=== PATIENT | male | born 1990 | race Caucasian/White ===

== ENCOUNTER 2018-08-19 11:15 | Emergency (ER) | payer MEDICAID, BC ==
[~2018-08-19] VITALS: Ht 188 cm; Wt 96.2 kg
[2018-08-19 11:18] VITALS: BP 148/97
[2018-08-19] MEDS ORDERED: HYDROcodone/APAP 5/325 TABLET ONE (11:37)
[2018-08-19] MEDS ORDERED: HYDROcodone/APAP 5/325 TABLET PO ONE (12:00)
--- NOTE | 2018-08-19 12:05 | NUR ---
Dieter osuna in ED - 08/19/18 at 1208 by ELBA Patient/Caregiver given discharge instructions and they have confirmed that they understand the instructions. Patient educated regarding crutch use, patient ambulatory with steady gait with crutches.
--- NOTE | 2018-08-19 12:05 | NUR ---
Patient/Caregiver given discharge instructions and they have confirmed that they understand the instructions. Patient ambulatory with steady gait.
== END 2018-08-19 12:07 | disposition home or self-care (01) ==
LOC: ED 12:01
DX: K04.7 Periapical abscess without sinus (principal); K02.9 Dental caries, unspecified
CPT/HCPCS: 99283

== ENCOUNTER 2019-01-15 07:14 | Emergency (ER) | payer BC, MEDICAID ==
[~2019-01-15] VITALS: Ht 185.4 cm; Wt 94.8 kg
[2019-01-15 07:26] VITALS: BP 151/79
[2019-01-15] MEDS ORDERED: KETOROLAC 30 MG/1 ML IM ONE (08:30)
[2019-01-15] MEDS ORDERED: KETOROLAC 30 MG/1 ML ONE (08:47)
[2019-01-15] MEDS ORDERED: HYDROcodone/APAP 5/325 TABLET PO ONE (10:00)
[2019-01-15] MEDS ORDERED: HYDROcodone/APAP 5/325 TABLET ONE (10:04)
--- NOTE | 2019-01-15 10:36 | NUR ---
LATE ENTRY Patient/Caregiver given discharge instructions and they have confirmed that they understand the instructions. Patient ambulatory with steady gait.
== END 2019-01-15 10:37 | disposition home or self-care (01) ==
LOC: ED 10:16
DX: G89.11 Acute pain due to trauma (principal); M54.6 Pain in thoracic spine; M50.23 Other cervical disc displacement, cervicothoracic region; M54.9 Dorsalgia, unspecified; Z88.5 Allergy status to narcotic agent; Z88.8 Allergy status to other drugs, medicaments and biological substances
CPT/HCPCS: 72072; 72125; 96372; 99284; J1885

== ENCOUNTER 2019-01-19 09:12 | Emergency (ER) | payer BC ==
[~2019-01-19] VITALS: Ht 185.4 cm; Wt 96.3 kg
[2019-01-19] MEDS ORDERED: OXYcodone/APAP 5/325MG TABLET ONE (09:41)
[2019-01-19] MEDS ORDERED: CYCLOBENZAPRINE 10 MG TABLET ONE (09:41)
[2019-01-19] MEDS ORDERED: ONDANSETRON ODT 4 MG ONE (09:41)
--- NOTE | 2019-01-19 09:48 | NUR ---
MEDS GIVEN PER ERP ORDER FOR 9/10 NECK PAIN. REFERRAL PROCESS EXPLAINED TO PT, ALL QUESTIONS ANSWERED. CALL LIGHT WITHIN REACH.
--- NOTE | 2019-01-19 09:57 | NUR ---
PT TO MRI.
[2019-01-19] MEDS ORDERED: CYCLOBENZAPRINE 10 MG TABLET PO ONE (10:00)
[2019-01-19] MEDS ORDERED: ONDANSETRON ODT 4 MG PO ONE (10:00)
[2019-01-19] MEDS ORDERED: OXYcodone/APAP 5/325MG TABLET PO ONE (10:00)
--- NOTE | 2019-01-19 11:06 | NUR ---
PT BACK FROM MRI. PT STATES PAIN TO NECK ONLY WITH MOVEMENT FOLLOWING MEDICATION. PT PREVIOUSLY RATED PAIN AT 9/10, NOW 4/10. VS UPDATED. CALL LIGHT WITHIN REACH. AWAITING MRI READ.
--- NOTE | 2019-01-19 11:34 | NUR ---
MRI RESULTS BACK, PT FOR RECHECK.
--- NOTE | 2019-01-19 12:12 | NUR ---
PT UPDATED ON ADD ON XR ORDERED. PT STATES COMFORTABLE AT THIS TIME. CALL LIGHT WITHIN REACH.
--- NOTE | 2019-01-19 12:42 | NUR ---
RESULTS BACK, PT FOR RECHECK.
[2019-01-19 13:13] VITALS: BP 118/64
== END 2019-01-19 13:15 ==
LOC: ED 10:45
DX: M50.120 Mid-cervical disc disorder, unspecified level (principal); Z79.899 Other long term (current) drug therapy; Z88.8 Allergy status to other drugs, medicaments and biological substances
CPT/HCPCS: 72040; 72141; 99284; Q0162